=== PATIENT | female | born 1965 | race African-American/Black ===

== ENCOUNTER 2025-05-17 09:29 | Emergency (ER) | payer OTHER ==
[~2025-05-17] VITALS: Ht 162.6 cm; Wt 104.5 kg
[2025-05-17 09:33] VITALS: TEMP 98.6
[2025-05-17] MEDS ORDERED: INSLAN SQ (09:43)
[2025-05-17] MEDS ORDERED: ATEN-73 PO (09:43)
[2025-05-17] MEDS ORDERED: MULT-1203 PO (09:43)
[2025-05-17] MEDS ORDERED: AMLO-258 PO (09:43)
[2025-05-17] MEDS ORDERED: VIT1CAPS49 PO (09:43)
[2025-05-17] MEDS ORDERED: ATOR40TA28 PO (09:43)
[2025-05-17] MEDS ORDERED: INSU100I32 SQ (09:43)
[2025-05-17] MEDS ORDERED: LEVE-71 PO (09:43)
[2025-05-17] MEDS ORDERED: CHOL500013 PO (09:43)
[2025-05-17] MEDS ORDERED: LOSA-382 PO (09:43)
[2025-05-17] MEDS ORDERED: GABA-1181 PO (09:43)
[2025-05-17] MEDS ORDERED: LORazepam 2 MG/ML VIAL IM ONE (10:30)
[2025-05-17 12:23] VITALS: BP 121/72; PULSE 68; RESP 16; O2SAT 98
[2025-05-17] MEDS ORDERED: LEVO750T68 PO (14:26)
[2025-05-17] MEDS ORDERED: DOXY-354 PO (14:28)
[2025-05-17] MEDS: DOXYCYCLINE HYCLATE 100 MG TABLET PO ONE (14:56)
== END 2025-05-17 15:06 | disposition home or self-care (01) ==
LOC: EMS 09:31
DX: K13.0 Diseases of lips (principal); R56.9 Unspecified convulsions; R22.9 Localized swelling, mass and lump, unspecified; E11.9 Type 2 diabetes mellitus without complications; E78.00 Pure hypercholesterolemia, unspecified; I10 Essential (primary) hypertension; J45.909 Unspecified asthma, uncomplicated; Z79.899 Other long term (current) drug therapy; Z88.0 Allergy status to penicillin; Z90.89 Acquired absence of other organs; Z88.6 Allergy status to analgesic agent; Z88.2 Allergy status to sulfonamides
CPT/HCPCS: 70486; 82962; 99284

== ENCOUNTER 2025-05-20 06:53 | Emergency (ER) | payer OTHER ==
[~2025-05-20] VITALS: Ht 162.6 cm; Wt 104.5 kg
[~2025-05-20 06:53] MED LIST: AMLO-258 PO; ATEN-73 PO; ATOR40TA28 PO; CHOL500013 PO; DOXY-354 PO; GABA-1181 PO; INSLAN SQ; INSU100I32 SQ; LEVE-71 PO; LEVO750T68 PO; LOSA-382 PO; MULT-1203 PO; VIT1CAPS49 PO
[2025-05-20 07:03] VITALS: BP 124/51; PULSE 74; RESP 16; TEMP 98.3; O2SAT 98
[2025-05-20] MEDS ORDERED: LEVE-71 PO (07:44)
== END 2025-05-20 09:15 | disposition home or self-care (01) ==
LOC: EMS 06:53
DX: L03.211 Cellulitis of face (principal); G40.909 Epilepsy, unspecified, not intractable, without status epilepticus; E11.9 Type 2 diabetes mellitus without complications; I10 Essential (primary) hypertension; J45.909 Unspecified asthma, uncomplicated; E78.00 Pure hypercholesterolemia, unspecified; Z88.0 Allergy status to penicillin; Z88.2 Allergy status to sulfonamides; Z88.6 Allergy status to analgesic agent; Z90.89 Acquired absence of other organs; Z79.899 Other long term (current) drug therapy
CPT/HCPCS: 99283; Z7502